=== PATIENT | male | born 1995 | race Caucasian/White ===

== ENCOUNTER 2021-07-22 16:12 | Emergency (ER) | payer SELFPAY ==
[~2021-07-22] VITALS: Ht 190.5 cm; Wt 67.0 kg
[2021-07-22 16:12] VITALS: BP 116/76
== END 2021-07-22 20:03 | disposition left against medical advice (07) ==
LOC: M ED 16:12
DX: Z53.21 Procedure and treatment not carried out due to patient leaving prior to being seen by health care provider (principal)